=== PATIENT | female | born 2000 | race Caucasian/White ===

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

== ENCOUNTER 2022-05-13 19:08 | Emergency (ER) | payer OTHER ==
[~2022-05-13] VITALS: Ht 162.5 cm; Wt 99.8 kg
[~2022-05-13 19:08] MED LIST changes: +CLARITIN10 MG PO; +FLONASE ALLERG9.9 ML NAS; +ROBITUSSIN DM 105 ML PO; +TAMIFLU 75MG CA75 MG PO
[2022-05-13] MEDS ORDERED: PENICILLIN VK500 MG PO (19:38)
== END 2022-05-13 19:48 | disposition home or self-care (01) ==
LOC: ED 19:08
DX: K04.7 Periapical abscess without sinus (principal)

== ENCOUNTER 2023-04-24 17:49 | Emergency (ER) | payer OTHER ==
[~2023-04-24] VITALS: Ht 165.1 cm; Wt 98.0 kg
[~2023-04-24 17:49] MED LIST changes: +PENICILLIN VK500 MG PO
== END 2023-04-24 20:27 | disposition home or self-care (01) ==
LOC: ED 17:49
DX: S30.0XXA Contusion of lower back and pelvis, initial encounter (principal); S09.8XXA Other specified injuries of head, initial encounter; W01.10XA Fall on same level from slipping, tripping and stumbling with subsequent striking against unspecified object, initial encounter; Y93.89 Activity, other specified; Y92.89 Other specified places as the place of occurrence of the external cause; Y99.8 Other external cause status

== ENCOUNTER 2024-03-06 12:21 | Emergency (ER) | payer OTHER ==
[~2024-03-06] VITALS: Ht 165.1 cm; Wt 99.3 kg
[~2024-03-06 12:21] MED LIST changes: +AMOX-CLAV 875-1 EACH PO; +IBUPROFEN600 MG PO
[2024-03-06] MEDS ORDERED: PRENATAL 19 TA1 EAC2 PO (12:30)
[2024-03-06 12:48] LABS: BILIRUBIN Negative (Negative); BLOOD Negative (Negative); CLARITY Cloudy (Clear); COLOR Yellow (Yellow); GLUCOSE Negative (Negative); KETONE Trace (Negative); LEUKO ESTERASE 1+ (Negative); NITRITE Negative (Negative); SPECIFIC GRAVITY >= 1.030 (1.001-1.030)
[2024-03-06] MEDS ORDERED: SODIUM CHLORIDE 0.9% 1,000 ML IV ONE (12:50)
[2024-03-06 13:00] LABS: BASO # 0.1 10*3/uL (0.0-0.1); BASO % 0.5 % (0.0-1.0); EOS # 0.3 10*3/uL (0.0-0.4); HEMATOCRIT 40.6 % (37.0-47.0); MEAN CELL VOLUME 90.8 fl (81.0-99.0); MEAN CORPUSCULAR HGB 29.8 pg (27.0-31.0); MEAN CORPUSCULAR HGB CONC 32.8 g/dl (33.0-37.0); MEAN PLATELET VOLUME 9.8 fl (9.6-12.3); MONO # 0.7 10*3/uL (0.1-1.0); MONO % 6.6 % (3.0-9.0); NEUT % 73.1 % (47.0-73.0); PLATELET COUNT AUTOMATED 396 10*3/uL (130-400); RED BLOOD COUNT 4.47 10*6/uL (4.10-5.10); RED CELL DISTRI WIDTH 12.6 % (0-14.5)
[2024-03-06 13:07] LABS: BACTERIA 3+; EPITHELIAL CELLS 41-50; WBC 16-20 wbc/hpf (0-5)
[2024-03-06 13:19] LABS: BUN 6 mg/dl (9-23); CHLORIDE 106 mmol/L (98-107); POTASSIUM 3.9 mmol/L (3.4-5.1)
[2024-03-06] MEDS ORDERED: CEPHALEXIN500 M1 PO (13:39)
== END 2024-03-06 14:17 | disposition home or self-care (01) ==
LOC: ED 12:21
PROVIDERS: Physician Assistant Medical
DX: O23.31 Infections of other parts of urinary tract in pregnancy, first trimester (principal); N39.0 Urinary tract infection, site not specified; R10.2 Pelvic and perineal pain; Z3A.12 12 weeks gestation of pregnancy